=== PATIENT | female | born 1930 | race Caucasian/White ===

== ENCOUNTER 2018-08-31 08:02 | Day surgery (SDC) | payer MEDICARE ==
[2018-08-31] MEDS ORDERED: Dexamethasone 4 MG/ML SDV IVPUSH ONE (08:03)
[2018-08-31] MEDS ORDERED: Midazolam 1 MG/ML 2 ML SDV IV ONE (08:03)
[2018-08-31] MEDS ORDERED: Sodium Chloride 0.9% 10 ML Syringe FLUSH PRN (08:15)
[2018-08-31] MEDS ORDERED: Lactated Ringers 1,000 ML IV SCH (09:15)
[2018-08-31 12:43] VITALS: BP 151/58
--- NOTE | 2018-09-01 03:26 | OR ---
DATE OF OPERATION: 08/31/2018 SURGEON: Mel Wren MD PREOPERATIVE DIAGNOSIS: Visually significant cataract, right eye. POSTOPERATIVE DIAGNOSIS: Visually significant cataract, right eye. PROCEDURE PERFORMED: Phacoemulsification with intraocular lens placement, right eye. TRANSPORTATION CLERK: None. ANESTHESIA: Local with sedation. FINDINGS: Dense cataract. COMPLICATIONS: None. BLOOD LOSS: None. IMPLANTS: Jason [id number], 21.5 diopter lens. CDE: 28.20. DESCRIPTION OF PROCEDURE: After risks and benefits were reviewed with the patient, the right eye was marked with a surgical pen, and consent was obtained in the preoperative area. The patient received dilating drops and moxifloxacin, ketorolac, and tetracaine in the preoperative area. The patient was taken to the operating room, where a time-out was performed, and the patient was placed under monitored anesthesia care. The patient received further tetracaine drops. The right eye was then prepped and draped for ophthalmic surgery and microscope was brought into position and focused. A paracentesis incision was made, followed by injection of 1% preservative free lidocaine into the anterior chamber, followed by injection of Viscoat into the anterior chamber. A microkeratome blade was used to make a corneal limbal incision temporarily. A cystotome was used to make the beginning of the capsulorhexis, which was carried around 360 degrees in a curvilinear fashion using Utrata forceps. A Hernandez cannula was used to hydrodissect and hydrodelineate the nucleus. The nucleus was removed and in a [id number] manner using phacoemulsification. Next, irrigation and aspiration was used to remove the cortical material. Provisc was injected into the capsular bag. A preloaded Jason [id number], 21.5 diopter lens, serial #[id number] was injected into the capsular bag and centered using a Mauricio instrument. Irrigation and aspiration were used to remove the remaining cortical material and viscoelastic from the anterior chamber. BSS on a cannula was used to inflate the anterior chamber and hydrate the wound. One milligram of vancomycin was injected into the anterior chamber. The drapes were removed, and the eye was cleaned. The patient received a drop of brimonidine and TobraDex, and the eye was shielded. The patient was taken to recovery in stable condition. /[id number] ANKIT/[place] CC: EDGARDO Mckeon FNP MTDD
== END 2018-08-31 11:30 ==
LOC: FB.SDS 08:02
PROVIDERS: ATTEND Ophthalmology
DX: H26.9 Unspecified cataract (principal); I11.0 Hypertensive heart disease with heart failure; I50.9 Heart failure, unspecified; Z79.82 Long term (current) use of aspirin; Z79.899 Other long term (current) drug therapy
CPT/HCPCS: 00142-QZ; J1100; J2250; J7120

== ENCOUNTER 2018-09-28 08:45 | Day surgery (SDC) | payer MEDICAID, MEDICARE ==
[2018-09-28] MEDS ORDERED: Midazolam 1 MG/ML 2 ML SDV IV ONE (08:46)
[2018-09-28] MEDS: Sodium Chloride 0.9% 10 ML Syringe FLUSH PRN ×2 (10:20→13:15)
[2018-09-28 13:29] VITALS: BP 161/66
--- NOTE | 2018-09-28 19:01 | OR ---
DATE OF OPERATION: 09/28/2018 SURGEON: Mel Wren MD PREOPERATIVE DIAGNOSIS: Visually significant cataract, left eye. POSTOPERATIVE DIAGNOSIS: Visually significant cataract, left eye. PROCEDURES PERFORMED: Phacoemulsification with intraocular lens placement, left eye. ASSISTANTS: None. ANESTHESIA: Local with sedation. COMPLICATIONS: None. BLOOD LOSS: None. IMPLANTS: Jason [id number], 21.5 diopter lens implanted. CDE: 5.16. DESCRIPTION OF PROCEDURE: After risks and benefits were reviewed with the patient, consent was obtained in the preoperative area, and the operative eye was marked with a surgical pen. The patient received dilating drops and moxifloxacin, along with ketorolac in the preoperative area. The patient was taken to the operating room, where a time-out was performed, and the patient was placed under monitored anesthesia care. Topical tetracaine was used for anesthesia. The operative eye was prepped and draped for ophthalmic surgery, and the microscope was brought into position and focussed. A paracentesis incision was made, followed by injection of preservative-free 1% lidocaine into the anterior chamber, followed by injection of Viscoat into the anterior chamber. A microkeratome blade was used to make a corneal limbal incision temporarily. A cystotome was used to make the beginning of the capsulorrhexis, which was carried around 360 degrees in a curvilinear fashion using Utrata forceps. A Hernandez cannula with BSS was used to hydrodissect and hydrodelineate the nucleus. The nucleus was removed in a divide and conquer manner using phacoemulsification. Irrigation and aspiration were used to remove the remaining cortical material. Provisc was used to inflate the capsular bag, and a pre-loaded Jason [id number], 21.5 diopter lens, serial number [id number] was injected into the capsular bag. A Sinskey hook was used to position and center the lens. Next, irrigation and aspiration was used to remove any remaining viscoelastic and cortical material from the anterior chamber. BSS on a cannula was used to inflate the anterior chamber and hydrate the wound. The wound was checked and found to be watertight. Drapes were removed and the eye was cleaned. A drop of brimonidine 0.15% and a drop of TobraDex was placed. The eye was shielded, and the patient was taken to the recovery room in stable condition. /[id number] [place] CC: EDGARDO THORNE CNP [facility]
== END 2018-09-28 11:56 ==
LOC: FB.SDS 08:45
PROVIDERS: ATTEND Ophthalmology
DX: H26.9 Unspecified cataract (principal); I13.0 Hypertensive heart and chronic kidney disease with heart failure and stage 1 through stage 4 chronic kidney disease, or unspecified chronic kidney disease; N18.9 Chronic kidney disease, unspecified; I50.9 Heart failure, unspecified; I69.351 Hemiplegia and hemiparesis following cerebral infarction affecting right dominant side; Z79.899 Other long term (current) drug therapy
CPT/HCPCS: 00142; 66984; J2001; J2250; V2632

== ENCOUNTER 2018-11-06 09:29 | Emergency (ER) | payer MEDICARE ==
--- NOTE | 2018-11-06 09:48 | EDM.PDOC ---
ED HPI GENERAL MEDICAL PROBLEM - General Chief Complaint: General Time Seen by Provider: 11/06/18 09:35 Source of Information: Reports: Patient, Family, RN History Limitations: Reports: Altered Mental Status, Physical Impairment - History of Present Illness INITIAL COMMENTS - FREE TEXT/NARRATIVE: 88 y.o.w.f with H/O dementia and left sided hemiparesis, wheelchair bound, was transferred to the ed because of "Unresponsive spells" after a BM, occ cough, distended abd. and weakness. Pt is not able to give a HPI. Family is present. No F/C, no N/V/D. No other acute med issues. BP 87/41 RR 17 Pulse Ox 91% on RA Pulse 55 Temp 36.4 Onset Date: 11/05/18 Onset Time: 09:00 Duration: Hour(s):, Day(s):, Intermittent Location: Reports: Generalized Quality: Reports: Dull Severity: Mild Improves with: Reports: Rest, Other (drinking water) Worsens with: Reports: Other (not drinking water) Context: Reports: Sick Contact Associated Symptoms: Reports: Confusion, Loss of Appetite, Weakness - Related Data Allergies Allergy/AdvReac Type Severity Reaction Status Date / Time No Known Allergies Allergy Verified 11/06/18 09:59 Home Meds: Home Meds Lovastatin 20 mg PO DAILY 02/27/15 [History] levETIRAcetam [Keppra] 500 mg PO BID 02/27/15 [History] Acetaminophen 1,000 mg PO BID 02/28/15 [History] Aspirin [Ecotrin] 325 mg PO DAILY tab.ec 02/28/15 [Rx] Atenolol 25 mg PO DAILY 02/28/15 [History] Eucalyptus/Menthol [Cough Drops] 1 drop PO Q4HR PRN 02/28/15 [History] Furosemide [Lasix] 20 mg PO DAILY 02/28/15 [History] Glycerin [Laxative Suppository] 1 supp RECTAL DAILY PRN 02/28/15 [History] Lisinopril 10 mg PO DAILY 02/28/15 [History] Magnesium Hydroxide [Milk of Magnesia] 1 supp RECTAL DAILY PRN 02/28/15 [History ] Multivitamin [Multi-Vitamin Daily] 1 each PO DAILY 02/28/15 [History] Na Phos,M-B/Na Phos,DI-B [Fleet Enema] 133 ml RC DAILY PRN 02/28/15 [History] Sennosides [Senna] 8.6 mg PO DAILY 02/28/15 [History] guaiFENesin [Robitussin] 2 tsp PO Q4HR PRN 02/28/15 [History] Cyanocobalamin (Vitamin B-12) [Vitamin B-12] 1,000 mcg PO DAILY 08/30/18 [ History] Loperamide [Imodium] 2 mg PO ASDIRECTED 08/30/18 [History] Mupirocin Oint [Bactroban Oint] 1 applic TP TID 08/30/18 [History] Past Medical History HEENT History: Reports: Cataract Other HEENT History: WEARS DENTURES Cardiovascular History: Reports: Other (See Below) Other Cardiovascular History: PREMATURE HEARTBEAT WHEN HAVING HER STROKE YEARS AGO. Respiratory History: Reports: None Other Respiratory History: cough Gastrointestinal History: Reports: None Genitourinary History: Reports: Renal Disease [employer] History: Reports: Musculoskeletal History: Reports: Arthritis, Back Pain, Chronic Other Musculoskeletal History: non ambulatory uses pal lift to transfer w/c bound Neurological History: Reports: CVA, Seizure Psychiatric History: Reports: Dementia Other Hematologic History: other b-complex deficiencies, unspecified anemia Immunologic History: Reports: None Oncologic (Cancer) History: Reports: None Dermatologic History: Other Dermatologic History: IMPETIGO - Infectious Disease History Infectious Disease History: Reports: Chicken Pox, Measles, Mumps, Shingles - Past Surgical History Head Surgeries/Procedures: Reports: None HEENT Surgical History: Reports: Cataract Surgery GI Surgical History: Reports: Appendectomy Female Surgical History: Reports: Hysterectomy Social & Family History - Family History Family Medical History: Noncontributory - Caffeine Use Caffeine Use: Reports: Coffee ED ROS GENERAL - Review of Systems Review Of Systems: Unable To Obtain ED EXAM, GENERAL - Physical Exam Exam: See Below Exam Limited By: Physical Impairment General Appearance: Alert, WD/WN, Mild Distress Eye Exam: Bilateral Eye: Normal Inspection Ears: Normal External Exam Ear Exam: Bilateral Ear: Auricle Normal Nose: Normal Inspection Throat/Mouth: Normal Lips, Normal Voice, No Airway Compromise, Other (dry mucosal membrane) Head: Atraumatic, Normocephalic Neck: Normal Inspection, Supple, Non-Tender, Full Range of Motion Respiratory/Chest: No Respiratory Distress, Decreased Breath Sounds, Rhonchi Cardiovascular: Normal Peripheral Pulses, Regular Rate, Rhythm, No Edema Peripheral Pulses: 1+: Radial (R) GI/Abdominal: Normal Bowel Sounds, Soft, Non-Tender, No Organomegaly, Pelvis Stable, Distended (Female) Exam: Deferred Rectal (Female) Exam: Deferred Back Exam: Normal Inspection, Full Range of Motion Extremities: Normal Inspection, No Pedal Edema, Normal Capillary Refill Neurological: Alert, Abnormal Gait (wheelchair bound), Sensory/Motor Deficit ( left hemiparesis) Psychiatric: Normal Affect, Normal Mood Skin Exam: Warm, Dry, Intact, Normal Color, No Rash Lymphatic: No Adenopathy Course - Vital Signs Text/Narrative:: 88 y.o.w.f with H/O dementia and left sided hemiparesis, wheelchair bound, was transferred to the ed because of "Unresponsive spells" after a BM, occ cough, distended abd. and weakness. Pt is not able to give a HPI. Family is present. No F/C, no N/V/D. No other acute med issues. BP 87/41 RR 17 Pulse Ox 91% on RA Pulse 55 Temp 36.4 PE: 88 y.o.w.f with Dementia and left sided hemiparesis, dehydrated, abd. bloating and rhonchi right lung refusing Tx Imaging: Abd.: Nonspecific bowel gas pattern. CXR: NAD. Official reports are pending labs: CBC nl Except HGB was 10.0 BMP was pos for BUN 28 Cr. 1.9, GFR 25, GLC 133 , Ca 8.3 UA was positive for UTI with hematuria Impression: Dementia, Dehydration, Anemia, UTI, Hypocalcemia. Tx: Pt refused I V hydration, was not able to give urine in the ED. Family requested to bring the pt back to the NH where the nurse can give her water PO. [facility] at [facility]. Plan: D/C with instructions. addendum After the Urine was collected and showed a UTI, Pt was started on Levaquin Abx. Last Recorded V/S: Last Vital Signs Temp 36.4 C 11/06/18 09:35 Pulse 59 L 11/06/18 11:25 Resp 17 11/06/18 11:25 BP 114/49 L 11/06/18 11:25 Pulse Ox 97 11/06/18 11:25 - Orders/Labs/Meds Orders: Active Orders 24 hr Category Date Time Status Abdomen 1V Flat [CR] Stat Exams 11/06/18 09:43 Taken Chest 1V Frontal [CR] Stat Exams 11/06/18 09:43 Ordered CULTURE URINE [RM] Routine Lab 11/06/18 12:55 Received Labs: Laboratory Tests 11/06/18 11/06/18 11/06/18 Range/Units 10:30 10:30 10:30 WBC 6.1 (4.5-12.0) X10-3/uL RBC 3.56 (3.23-5.20) x10(6)uL Hgb 10.0 L (11.5-15.5) g/dL Hct 31.4 (30.0-51.3) % MCV 88.0 (80-96) fL MCH 28.0 (27.7-33.6) pg MCHC 31.8 L (32.2-35.4) g/dL RDW 12.6 (11.5-15.5) % Plt Count 212 (125-369) X10(3)uL MPV 8.1 (7.4-10.4) fL Neut % (Auto) 70.5 (46-82) % Lymph % (Auto) 16.3 (13-37) % Stephenson % (Auto) 8.2 (4-12) % Eos % (Auto) 4 (1.0-5.0) % Baso % (Auto) 1 (0-2) % Neut # (Auto) 4.3 (1.6-8.3) # Lymph # (Auto) 1.0 (0.6-5.0) # Stephenson # (Auto) 0.5 (0.0-1.3) # Eos # (Auto) 0.3 (0.0-0.8) # Baso # (Auto) 0.0 (0.0-0.2) # PT 10.0 (8.7-11.1) INR 1.03 (0.89-1.13) Sodium 142 (135-145) mmol/L Potassium 4.1 (3.5-5.3) mmol/L Chloride 107 (100-110) mmol/L Carbon Dioxide 25 (21-32) mmol/L BUN 28 H (7-18) mg/dL Creatinine 1.9 H (0.55-1.02) mg/dL Est Cr Clr Drug Dosing 18.35 mL/min Estimated GFR (MDRD) 25 L (>60) BUN/Creatinine Ratio 14.7 (9-20) Glucose 133 H (80-116) mg/dL Lactic Acid (0.4-2.2) mmol/L Calcium 8.3 L (8.6-10.2) mg/dL Urine Color (YELLOW) Urine Appearance (CLEAR) Urine pH (5.0-6.5) Ur Specific [place] (1.010-1.025) Urine Protein (NEGATIVE) mg/dL Urine Glucose (UA) (NORMAL) mg/dL Urine Ketones (NEGATIVE) mg/dL Urine Occult Blood (NEGATIVE) Urine Nitrite (NEGATIVE) Urine Bilirubin (NEGATIVE) Urine Urobilinogen (NEGATIVE) mg/dL Ur Leukocyte Esterase (NEGATIVE) Urine RBC (0-5) Urine WBC (0-5) Ur Squamous Epith Cells (NS,R,O) Urine Bacteria (NS) 11/06/18 11/06/18 Range/Units 10:30 12:55 WBC (4.5-12.0) X10-3/uL RBC (3.23-5.20) x10(6)uL Hgb (11.5-15.5) g/dL Hct (30.0-51.3) % MCV (80-96) fL MCH (27.7-33.6) pg MCHC (32.2-35.4) g/dL RDW (11.5-15.5) % Plt Count (125-369) X10(3)uL MPV (7.4-10.4) fL Neut % (Auto) (46-82) % Lymph % (Auto) (13-37) % Stephenson % (Auto) (4-12) % Eos % (Auto) (1.0-5.0) % Baso % (Auto) (0-2) % Neut # (Auto) (1.6-8.3) # Lymph # (Auto) (0.6-5.0) # Stephenson # (Auto) (0.0-1.3) # Eos # (Auto) (0.0-0.8) # Baso # (Auto) (0.0-0.2) # PT (8.7-11.1) INR (0.89-1.13) Sodium (135-145) mmol/L Potassium (3.5-5.3) mmol/L Chloride (100-110) mmol/L Carbon Dioxide (21-32) mmol/L BUN (7-18) mg/dL Creatinine (0.55-1.02) mg/dL Est Cr Clr Drug Dosing mL/min Estimated GFR (MDRD) (>60) BUN/Creatinine Ratio (9-20) Glucose (80-116) mg/dL Lactic Acid 1.1 (0.4-2.2) mmol/L Calcium (8.6-10.2) mg/dL Urine Color Yellow (YELLOW) Urine Appearance Slightly cloudy (CLEAR) Urine pH 5.0 (5.0-6.5) Ur Specific [place] 1.015 (1.010-1.025) Urine Protein Negative (NEGATIVE) mg/dL Urine Glucose (UA) Normal (NORMAL) mg/dL Urine Ketones Negative (NEGATIVE) mg/dL Urine Occult Blood Moderate H (NEGATIVE) Urine Nitrite Positive H (NEGATIVE) Urine Bilirubin Negative (NEGATIVE) Urine Urobilinogen Normal (NEGATIVE) mg/dL Ur Leukocyte Esterase Large H (NEGATIVE) Urine RBC 5-10 H (0-5) Urine WBC 50-75 H (0-5) Ur Squamous Epith Cells Few H (NS,R,O) Urine Bacteria Many H (NS) Meds: Medications Discontinued Medications Generic Name Dose Route Start Last Admin Trade Name Freq PRN Reason Stop Dose Admin Sodium Chloride 1,000 mls @ 555 mls/hr 11/06/18 11:08 11/06/18 12:27 Normal Saline IV 11/06/18 12:56 Not Given .BOLUS ONE Departure - Departure Time of Disposition: 11:14 Disposition: Home, Self-Care 01 Condition: Good Clinical Impression: Dementia, Dehydration, Anemia - Discharge Information Instructions: Dehydration, Elderly, Rehydration, Elderly Referrals: Aditya Avila MD [Primary Care Provider] - Forms: ED Department Discharge Additional Instructions: Please collect an urine sample for urine analysis, please increase water intake , please f/u, please come back if your symptoms get worse acutely - My Orders Last 24 Hours: My Active Orders 11/06/18 09:43 Abdomen 1V Flat [CR] Stat Chest 1V Frontal [CR] Stat 11/06/18 12:55 CULTURE URINE [RM] Routine - Assessment/Plan Last 24 Hours: My Active Orders 11/06/18 09:43 Abdomen 1V Flat [CR] Stat Chest 1V Frontal [CR] Stat 11/06/18 12:55 CULTURE URINE [RM] Routine
[2018-11-06] MEDS ORDERED: Sodium Chloride 0.9% 1,000 ML IV ONE (11:08)
[2018-11-06 11:29] VITALS: BP 114/49
--- NOTE | 2018-11-08 11:14 | CR ---
INDICATION: Cough. CHEST: Two AP upright views of the chest were obtained 11/06/18 and compared with 11/12/09 and 10/06/09. The heart appears slightly enlarged. The aorta is tortuous with calcification in the arch. Upper lung field pulmonary vasculature is somewhat prominent, raising question of a mild or early CHF. Interstitial changes raise question of a minimal degree of interstitial lung edema additionally or could possibly be on the basis of interstitial infiltration due to unusual pneumonia or possibly interstitial fibrosis. This should be correlated clinically. No gross consolidating pneumonia or effusion was seen. No free air was noted under the hemidiaphragm leaves. IMPRESSION: Findings raise question of CHF and minimal interstitial lung edema - correlate clinically. MTDD
--- NOTE | 2018-11-08 11:17 | CR ---
INDICATION: Fever, cough, abdominal distention. ABDOMEN: Two supine images of the abdomen were obtained and revealed a nonspecific pattern of gas and feces without evidence of gross free air or obstruction. The aorta is calcified and tortuous. Some calcification is also noted in the iliac arteries. No organomegaly, mass lesions, or nonvascular pathologic calcifications were suggested. IMPRESSION: Nonacute abdomen. MTDD
== END 2018-11-06 11:43 | disposition home or self-care (01) ==
LOC: FB.ED 09:29
DX: N39.0 Urinary tract infection, site not specified (principal); F03.90 Unspecified dementia, unspecified severity, without behavioral disturbance, psychotic disturbance, mood disturbance, and anxiety; E86.0 Dehydration; E87.6 Hypokalemia; D64.9 Anemia, unspecified; Z79.899 Other long term (current) drug therapy; Z86.73 Personal history of transient ischemic attack (TIA), and cerebral infarction without residual deficits; Z79.82 Long term (current) use of aspirin
CPT/HCPCS: 36415; 71045; 74018; 80048; 81001; 83605; 85025; 85610; 87086; 87088; 87186; 99284-25